=== PATIENT | female | born 1970 | race Caucasian/White ===

== ENCOUNTER → 2017-01-14 | Outpatient (CLI) | payer BC ==
--- NOTE | 2017-01-15 10:06 | US ---
EXAM DESCRIPTION: Breast,Left CLINICAL HISTORY: 46 yearsFemaleLUMP COMPARISON: Digital 3-D tomosynthesis diagnostic bilateral mammography on this visit. TECHNIQUE: Transcutaneous scanning of the left breast utilizing two-dimensional and Doppler modes. Scanning performed by the screw driver operator and Dr. Hung. FINDINGS: Scanning from the 300 clock position to the 530 clock position 1 to 3 cm from the nipple. Heterogeneous fibroglandular and fatty tissues. No discrete solid mass or cyst. No parenchymal edema. No large calcifications. Also scanning at the 200-300 clock position 6 cm from the nipple. Heterogeneous fibroglandular and fatty tissues. No discrete solid mass or cyst. No parenchymal edema. No large calcifications. IMPRESSION: 1. BiRads Category 2: Benign. 2. Please refer to bilateral diagnostic 3-D tomosynthesis examination and report on this visit. The findings and the follow-up plan were reviewed in person with the patient after the examination. Written communication discussing the findings and impression will be mailed to the patient and referring health care provider. Electronically signed by: Terry Hung MD 01/15/2017 10:05 AM CDT
--- NOTE | 2017-01-15 10:07 | MAM ---
EXAM DESCRIPTION: 3D Diagnostic, Bilateral CLINICAL HISTORY: 46 yearsFemaleUnspecified lump in breast history sheet. COMPARISON: 2-D digital screening bilateral examination 03/14/2008. Targeted ultrasound of the left breast on this visit. No prior reports available. TECHNIQUE: Bilateral CC, LM, and MLO projection full-field images, 3-D tomosynthesis digital mammographic technique. Also bilateral synthesized CC/ MLO, and LM full-field images. CAD not utilized. FINDINGS: The breast parenchymal density pattern is: Scattered areas of fibroglandular density. No skin thickening or nipple retraction focal asymmetry in the 5:00 position of the right breast approximately 3 cm from the nipple. Not associated microcalcifications. Bilateral solitary microcalcifications. Intramammary lymph nodes in the axilla on the right breast. Skin marker is noted on the lateral aspect of the left breast at approximately 200 clock position. ULTRASOUND: Scanning from the 300 clock position to the 530 clock position 1 to 3 cm from the nipple. Heterogeneous fibroglandular and fatty tissues. No discrete solid mass or cyst. No parenchymal edema. No large calcifications. Also scanning at the 200-300 clock position 6 cm from the nipple. Heterogeneous fibroglandular and fatty tissues. No discrete solid mass or cyst. No parenchymal edema. No large calcifications. No suspicious microcalcifications bilaterally. Stable mammograms compared to prior study, taking into account differences in mammographic technique IMPRESSION: BI-RADS CATEGORY: 2 - BENIGN FINDINGS. FOLLOW UP: Routine digital bilateral screening, one year interval from January 2017. Written communication explaining the findings and follow-up, will be mailed to the patient and referring health care provider. According to the [employer], yearly mammograms are recommended starting at age 40 and continuing as long as a woman is in good health. Any breast change noted on a breast self-exam should be reported promptly to the patient's healthcare provider. Breast MRI is recommended for women with an approximately 20-25% or greater lifetime risk of breast cancer, including women with a strong family history of breast or ovarian cancer and women who have been treated for Hodgkin's disease. A negative mammographic report should not delay tissue diagnosis in patients with significant clinical history or physical findings. Extremely dense breast tissue limits the sensitivity of digital mammography. Electronically signed by: Terry Hung MD 01/15/2017 10:05 AM DOZT
== END | disposition home or self-care (01) ==
LOC: MAMMO 14:24
PROVIDERS: ATTEND Obstetrics & Gynecology
DX: N63 Unspecified lump in breast (principal)

== ENCOUNTER 2017-01-28 10:31 | Emergency (ER) | payer BC ==
[2017-01-28 10:51] VITALS: TEMP 97.9
[2017-01-28] MEDS: KETOROLAC TROMETHAMINE INJ 30 MG/ML VIAL IM ONE (10:53)
[2017-01-28] MEDS: LIDOCAINE VIS-MYLANTA 30 ML UD PO ONE (10:53)
--- NOTE | 2017-01-28 11:10 | RAD ---
EXAM DESCRIPTION: Chest,2 Views CLINICAL HISTORY: 46 years Female, left lower lateral chest pain COMPARISON: None. IMPRESSION: The heart is at the upper limits of normal in size, and mild central pulmonary vascular congestion is demonstrated. Mild perihilar interstitial prominence. The findings may reflect atelectasis/scarring, but mild interstitial edema/CHF or an atypical infectious/inflammatory process is not totally excluded. Otherwise no confluent airspace consolidation, pleural effusion, or pneumothorax. No acute osseous abnormality. Electronically signed by: Benson Longoria MD 01/28/2017 11:08 AM CDT
[2017-01-28] MEDS: predniSONE 20 MG TAB PO ONE (12:18)
[2017-01-28] MEDS: CYCLOBENZAPRINE HCL 10 MG TAB PO ONE (12:18)
--- NOTE | 2017-01-28 12:23 | ED.PDOC ---
History of Present Illness - General Chief Complaint: Respiratory Problem Stated Complaint: Sob Time Seen by Provider: 01/28/17 10:41 Source: patient Exam Limitations: no limitations - History of Present Illness Initial Comments: the patient is a 46-year-old female presenting secondary toleft lateral chest wall pain present and progressive for the last 24 hours. It is on the lower chest wall. He does have some shooting-type sensations around 2 the sternum. It is worse with taking a deep breath or twisting and turning. It is not necessarily worse with palpation. She has had a mild cough but no fever. No productive sputum. No hemoptysis. No recent trauma. She does have mild shortness of breath sensation due to pain with taking a deep breath on that side. No pain on the right. Timing/Duration: 24 hours Severity: moderate Improving Factors: nothing, immobilization Worsening Factors: movement Associated Symptoms: denies symptoms Allergies/Adverse Reactions: Allergies Cephalexin [From Keflex] Allergy (Verified 01/28/17 10:50) Home Medications: Ambulatory Orders Azithromycin 500 mg PO DAILY #5 tab 01/28/17 Cyclobenzaprine HCl [Flexeril] 10 mg PO Q8HRS PRN #20 tab 01/28/17 predniSONE [Prednisone] 20 mg PO DAILY #5 tab 01/28/17 Review of Systems - Review of Systems Constitutional: States: no symptoms reported EENTM: States: no symptoms reported Respiratory: States: cough, short of breath Cardiology: States: chest pain Gastrointestinal/Abdominal: States: no symptoms reported Genitourinary: States: no symptoms reported Musculoskeletal: States: no symptoms reported Skin: States: no symptoms reported Neurological: States: no symptoms reported Endocrine: States: no symptoms reported Hematologic/Lymphatic: States: no symptoms reported All other Systems: No Change from Baseline Past Medical History (General) - Patient Medical History Hx Hypertension: Yes Hx Thyroid Disease: Yes Surgical History: cholecystectomy, other - Vaccination History Hx Influenza Vaccination: No Hx Pneumococcal Vaccination: No - Social History Hx Tobacco Use: No Hx Alcohol Use: No Hx Substance Use: No Hx Substance Use Treatment: No Hx Depression: No - Female History Patient is a Female of Child Bearing Age (10 -59 yrs old): Yes Patient : No Family Medical History - Family History Mother Family History: Unknown Physical Exam - Physical Exam General Appearance: Agitated, Anxious, No apparent distress Eye Exam: bilateral normal Ears, Nose, Throat: hearing grossly normal, normal ENT inspection, normal pharynx Neck: non-tender, full range of motion, supple Respiratory: chest non-tender, lungs clear, normal breath sounds, no respiratory distress, no accessory muscle use Cardiovascular/Chest: normal peripheral pulses, regular rate, rhythm, no edema Peripheral Pulses: radial,right: 2+, radial,left: 2+, dorsalis pedis,right: 2+, dorsalis pedis,left: 2+ Gastrointestinal/Abdominal: non tender, soft Rectal Exam: deferred Back Exam: normal inspection, no CVA tenderness, no vertebral tenderness Extremity: normal range of motion, non-tender, normal inspection, no pedal edema Neurologic: sports fitness and wellness director II-XII nml as tested, alert, normal mood/affect, oriented x 3 Skin Exam: other - ild scattered psoriasis Comments: Vital Signs - 24 hr 01/28/17 01/28/17 10:35 10:51 Temperature 97.9 F Pulse Rate [ 66 pulse ox] Respiratory 20 20 Rate Blood Pressure 160/78 [left arm] O2 Sat by Pulse 95 Oximetry Progress - Progress Progress: 01/28/17 12:24 the patient is a 46-year-old female presenting with a clinical picture that is consistent with left lateral pleurisy. Source of the pleurisy is uncertain at this time. The patient will be covered with oral azithromycin along with Flexeril and prednisone for the next 5 days. She does need to take deep breaths to prevent further atelectasis. She does need follow-up with her primary care doctor preferably before the weekend to make sure she is improving. She needs to twist and turn and do stretches to help reduce discomfort. ER warnings were given for any acute worsening. laboratory work is reassuring at this time. - Results/Orders Results/Orders: Laboratory Tests 01/28/17 01/28/17 01/28/17 11:30 11:30 11:30 WBC 8.2 RBC 4.65 Hgb 14.1 Hct 41.8 MCV 89.7 MCH 30.4 MCHC 33.9 RDW 13.5 Plt Count 250 MPV 9.1 Absolute Neuts (auto) 5.60 Absolute Lymphs (auto) 1.90 Absolute Monos (auto) 0.60 Absolute Eos (auto) 0.10 Absolute Basos (auto) 0.10 Neutrophils % 67.9 Lymphocytes % 23.3 Monocytes % 6.9 Eosinophils % 1.1 Basophils % 0.8 D-Dimer, Quantitative < 200 Sodium 135 Potassium 3.7 Chloride 99 L Carbon Dioxide 29 Anion Gap 10.7 L BUN 16 Creatinine 0.60 BUN/Creatinine Ratio 26.7 H Random Glucose 90 Serum Osmolality 270.8 L Calcium 8.3 L Total Bilirubin 1.0 AST 23 ALT 24 Alkaline Phosphatase 66 Creatine Kinase 122 CK-MB (CK-2) 2.1 CK-MB (CK-2) % Not Reportable Troponin I < 0.02 B-Natriuretic Peptide 20.4 Serum Total Protein 7.4 Albumin 3.9 Globulin 3.5 Albumin/Globulin Ratio 1.1 chest x-ray shows no definite acute processes. Departure - Departure Clinical Impression: Pleurisy Disposition: Discharge to Home or Self Care Condition: Fair Departure Forms: ED Discharge - Pt. Copy, Patient Portal Self Enrollment Instructions: DI for Pleurisy Diet: diabetic diet Activity: increase activity as tolerated Referrals: Jw Castillo MD [Primary Care Provider] - 1-2 Weeks Prescriptions: Cyclobenzaprine HCl [Flexeril] 10 mg PO Q8HRS PRN #20 tab PRN Reason: Muscle Spasms Azithromycin 500 mg PO DAILY #5 tab predniSONE [Prednisone] 20 mg PO DAILY #5 tab Home Medications: Ambulatory Orders Azithromycin 500 mg PO DAILY #5 tab 01/28/17 Cyclobenzaprine HCl [Flexeril] 10 mg PO Q8HRS PRN #20 tab 01/28/17 predniSONE [Prednisone] 20 mg PO DAILY #5 tab 01/28/17 Additional Instructions: the patient is a 46-year-old female presenting with a clinical picture that is consistent with left lateral pleurisy. Source of the pleurisy is uncertain at this time. The patient will be covered with oral azithromycin along with Flexeril and prednisone for the next 5 days. She does need to take deep breaths to prevent further atelectasis. She does need follow-up with her primary care doctor preferably before the weekend to make sure she is improving. She needs to twist and turn and do stretches to help reduce discomfort. ER warnings were given for any acute worsening. laboratory work is reassuring at this time.
[2017-01-28 12:35] VITALS: BP 127/78; O2SAT 96
== END 2017-01-28 12:36 | disposition home or self-care (01) ==
LOC: ER 10:31
DX: R09.1 Pleurisy (principal); Z88.3 Allergy status to other anti-infective agents; I10 Essential (primary) hypertension; E07.9 Disorder of thyroid, unspecified
CPT/HCPCS: 36415; 71020; 80053; 82550; 82553; 83880; 84484; 85025; 85379; J1885; J7512

== ENCOUNTER 2017-04-23 17:40 | Emergency (ER) | payer BC ==
[2017-04-23 18:00] VITALS: TEMP 98.9
[2017-04-23] MEDS ORDERED: KETOROLAC TROMETHAMINE INJ 60 MG/2 ML VIAL IM ONE (18:01)
--- NOTE | 2017-04-23 18:22 | RAD ---
EXAM: Tibia/Fibula,Right (accession [id number]), Ankle,Left 3 Views (accession [id number]) CLINICAL INDICATION: 46-year-old female status post fall. TECHNIQUE: Three views RIGHT ankle were obtained in AP, lateral and oblique projections. COMPARISON: None. FINDINGS: There is no fracture or dislocation. The joint spaces are preserved. Extensive lateral malleolus soft tissue swelling. Focus of ossification distal to the lateral malleolus measures 4 mm suggestive of accessory ossicle or sequela of prior injury. Small Achilles tendon enthesophyte. Degenerative changes of the midfoot articulations. Degenerative changes of the knee incidentally noted. IMPRESSION: Lateral malleolus soft tissue swelling without fracture or dislocation Electronically signed by: Dee Dee Andres MD 04/23/2017 6:21 PM [facility]
--- NOTE | 2017-04-23 18:22 | RAD ---
EXAM: Tibia/Fibula,Right (accession [id number]), Ankle,Left 3 Views (accession [id number]) CLINICAL INDICATION: 46-year-old female status post fall. TECHNIQUE: Three views RIGHT ankle were obtained in AP, lateral and oblique projections. COMPARISON: None. FINDINGS: There is no fracture or dislocation. The joint spaces are preserved. Extensive lateral malleolus soft tissue swelling. Focus of ossification distal to the lateral malleolus measures 4 mm suggestive of accessory ossicle or sequela of prior injury. Small Achilles tendon enthesophyte. Degenerative changes of the midfoot articulations. Degenerative changes of the knee incidentally noted. IMPRESSION: Lateral malleolus soft tissue swelling without fracture or dislocation Electronically signed by: Dee Dee Andres MD 04/23/2017 6:21 PM [facility]
--- NOTE | 2017-04-23 19:36 | ED.PDOC ---
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 She is able to bear some weight on right lower extremity. Small abrasion noted to lateral aspect of right distal lower leg near ankle. - History of Present Illness Occurred: just prior to arrival Pain - Lower Extremity: mild: Right Ankle Method of Injury: fell, twisted Improving Factors: rest Worsening Factors: movement Allergies/Adverse Reactions: Allergies Cephalexin [From Keflex] Allergy (Verified 01/28/17 10:50) Home Medications: Ambulatory Orders Azithromycin 500 mg PO DAILY #5 tab 01/28/17 Cyclobenzaprine HCl [Flexeril] 10 mg PO Q8HRS PRN #20 tab 01/28/17 predniSONE [Prednisone] 20 mg PO DAILY #5 tab 01/28/17 Review of Systems - Review of Systems Constitutional: States: no symptoms reported EENTM: States: no symptoms reported Respiratory: States: no symptoms reported Cardiology: States: no symptoms reported Gastrointestinal/Abdominal: States: no symptoms reported Genitourinary: States: no symptoms reported Musculoskeletal: States: see HPI, joint pain, joint swelling Skin: States: see HPI - small abrasion to distal right lower extremity (lateral) Neurological: States: no symptoms reported Endocrine: States: no symptoms reported Hematologic/Lymphatic: States: no symptoms reported Past Medical History (General) - Patient Medical History Hx Dementia: No Hx Asthma: No Hx of COPD: No Hx Cardiac Disorders: No Hx Hypertension: Yes Hx Thyroid Disease: Yes Hx Diabetes: No Surgical History: cholecystectomy, other - Vaccination History Hx Influenza Vaccination: No Hx Pneumococcal Vaccination: No - Social History Hx Tobacco Use: No Hx Alcohol Use: No Hx Substance Use: No Hx Substance Use Treatment: No Hx Depression: No - Female History Patient : No Family Medical History - Family History Mother Family History: Unknown Physical Exam - Physical Exam General Appearance: Obese Eyes, Ears, Nose, Throat: PERRL/EOMI, normal ENT inspection Neck: non-tender, full range of motion, supple Cardiovascular/Respiratory: normal peripheral pulses, no respiratory distress, other - normal pulses throughout Back: normal inspection Thigh/Hip: normal ROM Leg: normal inspection, normal ROM Knee: normal inspection, no evidence of injury, normal ROM Ankle: limited ROM - due to pain and swelling, soft tissue tenderness, swelling Neuro/Tendon: normal sensation Mental Status: alert, oriented x 3 Progress - Progress Progress: 04/24/17 01:23 No evidence of fracture on x-ray. Small Abrasion to lateral aspect of right ankle. Soft tissue swelling noted around lateral maleolus. Will d/c home with crutches and recommend ice and ROM exercises to help with swelling and rehabilitation. - Results/Orders Results/Orders: Ankle and Tib/Fib X-ray: IMPRESSION: Lateral malleolus soft tissue swelling without fracture or dislocation Departure - Departure Clinical Impression: Contusion of right ankle, initial encounter Time of Disposition: 19:52 Disposition: Discharge to Home or Self Care Condition: Fair Departure Forms: ED Discharge - Pt. Copy, Patient Portal Self Enrollment Referrals: Jw Castillo MD [Primary Care Provider] - 1-2 Weeks Home Medications: Ambulatory Orders Azithromycin 500 mg PO DAILY #5 tab 01/28/17 Cyclobenzaprine HCl [Flexeril] 10 mg PO Q8HRS PRN #20 tab 01/28/17 predniSONE [Prednisone] 20 mg PO DAILY #5 tab 01/28/17 Additional Instructions: Crutches to limit weight bearing as tolerated. Ice to swollen area. Range of motion exercises. No evidence of fracture on x-rays. Follow-up with primary care provider within 3 to 5 days for reassessment.
[2017-04-23 19:54] VITALS: BP 145/82; O2SAT 95
== END 2017-04-23 19:54 | disposition home or self-care (01) ==
LOC: ER 17:40
DX: S90.01XA Contusion of right ankle, initial encounter (principal); E66.9 Obesity, unspecified; I10 Essential (primary) hypertension; E07.9 Disorder of thyroid, unspecified; Z88.1 Allergy status to other antibiotic agents; X50.1XXA Overexertion from prolonged static or awkward postures, initial encounter; Y93.01 Activity, walking, marching and hiking; Y92.89 Other specified places as the place of occurrence of the external cause
CPT/HCPCS: 73590; 73610; J1885

== ENCOUNTER → 2017-06-01 | Outpatient (CLI) | payer BC | LOC: MRI 08:13 | PROVIDERS: ATTEND Obstetrics & Gynecology | DX: M54.10 Radiculopathy, site unspecified (principal) ==

== ENCOUNTER → 2017-06-10 | Outpatient (CLI) | payer BC ==
--- NOTE | 2017-06-11 10:17 | RAD ---
History: Shortness breath. Chest pain. Chest x-ray: AP portable film is obtained and compared with January 2017 study. Cardiac silhouette is accentuated by film technique and is grossly stable. Pulmonary vascularity is upper normal. No infiltrate or effusion. IMPRESSION: Grossly stable chest since 01/2017. Electronically signed by: Magalys Swann MD 06/11/2017 10:16 AM TRANSMISSION CALIBRATION ENGINEER Workstation: [id number]
== END ==
LOC: LAB.O 08:23
PROVIDERS: ATTEND Obstetrics & Gynecology
DX: R09.1 Pleurisy (principal); I10 Essential (primary) hypertension; E03.9 Hypothyroidism, unspecified

== ENCOUNTER → 2017-06-16 | Outpatient (CLI) | payer BC | LOC: LAB.O 08:54 | PROVIDERS: ATTEND Obstetrics & Gynecology | DX: I50.40 Unspecified combined systolic (congestive) and diastolic (congestive) heart failure (principal) ==

== ENCOUNTER → 2017-07-09 | Outpatient (CLI) | payer BC ==
--- NOTE | 2017-07-10 16:00 | US ---
THYROID ULTRASOUND CLINICAL INFORMATION: Hyperthyroidism TECHNIQUE: Thyroid sonogram was performed. COMPARISON: None FINDINGS: Thyroid size: Right lobe measures 5 x 2.5 x 2.8 cm. The left lobe measures 4.2 x 1.5 x 1.6 in meters. The isthmic thickness is 3.4 mm. Texture: Coarse inhomogeneous texture with decreased echogenicity compared to normal. Nodules In the right thyroid lobe, in the posterior midportion, a dominant nodule is seen which is hypoechoic and sonographically solid measuring 1.8 x 2.5 x 1.7 cm. Long axis is perpendicular to the skin which is a potentially worrisome finding. In the anterior mid right thyroid lobe an ovoid elongate appearing nodule is seen measuring 2.1 x 0.8 x 1.2 cm. Long axis parallel to the skin is said to be a benign characteristic. Nodules greater than 1.5 cm should be further evaluated with sono guided fine-needle aspiration biopsy if this has not already been performed. In a patient with hyperthyroidism, a dominant nodule could be autologously functioning. Correlate with radioactive iodine thyroid scan with uptake values. In the left thyroid lobe, a small nodule is seen in the medial midportion measuring 0.9 x 0.6 x 0.8 cm. No internal calcifications. This is sonographically solid and slightly hypoechoic. No other nodules are measured on the left. The submitted images show no evidence of anterior cervical adenopathy. IMPRESSION: Dominant nodules in the right thyroid lobe. Further evaluation is recommended. Electronically signed by: Stew Porter MD 07/10/2017 3:59 PM COMIC BOOK WRITER
== END ==
LOC: LAB.O 10:35
PROVIDERS: ATTEND Obstetrics & Gynecology
DX: E03.9 Hypothyroidism, unspecified (principal); E04.2 Nontoxic multinodular goiter

== ENCOUNTER → 2018-12-31 | Outpatient (CLI) | payer BC | LOC: RAD 08:02 | PROVIDERS: ATTEND Orthopaedic Surgery | DX: M25.511 Pain in right shoulder (principal) ==

== ENCOUNTER → 2020-05-28 | Outpatient (CLI) | payer BC | LOC: GMAJ 12:00 | PROVIDERS: ATTEND Family Medicine | DX: E03.2 Hypothyroidism due to medicaments and other exogenous substances (principal) ==